=== PATIENT | female | born 1945 | race African-American/Black ===

== ENCOUNTER 2022-12-20 06:21 | Emergency (ER) | payer MEDICARE, OTHER ==
[~2022-12-20] VITALS: Ht 152.4 cm; Wt 65.8 kg
[2022-12-20 06:40] VITALS: BP 174/74; PULSE 61; RESP 16; TEMP 98.8; O2SAT 99
[2022-12-20] MEDS ORDERED: IBUP-2213 PO (07:11)
[2022-12-20] MEDS ORDERED: KETOROLAC 60 MG/2 ML VIAL IM ONE (07:30)
[2022-12-20 08:28] VITALS: TEMP 98.8
[2022-12-20 09:17] VITALS: BP 142/74; PULSE 72; RESP 16; O2SAT 98
== END 2022-12-20 08:29 | disposition home or self-care (01) ==
LOC: MED 06:21
DX: S00.83XA Contusion of other part of head, initial encounter (principal); W18.30XA Fall on same level, unspecified, initial encounter; Y93.89 Activity, other specified; Y92.89 Other specified places as the place of occurrence of the external cause; Y99.8 Other external cause status
CPT/HCPCS: 70450; 96372; 99285; J1885